=== PATIENT | male | born 2000 | race Caucasian/White ===

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

== ENCOUNTER 2018-06-15 19:38 | Emergency (ER) | payer OTHER ==
[2018-06-15 20:09] VITALS: BP 110/64
--- NOTE | 2018-06-15 20:31 | UC ---
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 UPON STANDING, HE HIT HIS HEAD ON THE TRUNK WHILE AT THE SAME TIME THE QUOTATION CLERK WAS CLOSING THE TRUNK. HE HAD NO LOC, HEADACHE OR COMPLAINTS AT THAT TIME. HE FINISHED HIS SHIFT AT 8:30PM AND WENT HOME FEELING FINE. HE PROCEEDED TO PLAY VIDEO GAMES UNTIL AROUND MIDNIGHT WHEN HE DEVELOPED A THROBBING HEADACHE TO THE TOP OF HIS HEAD. TRIAGE NOTED NAUSEA WHICH HE DENIED TO MYSELF. HE DID HAVE SOME LIGHT SENSITIVITY. HE DENIES FEVER, VOMITING, VISUAL DISTURBANCE. HE DENIES THE HEADACHE BEING ABRUPT OR WORTS EVER. HE HAS TRIED NO SELF TX. HE HAS A SELF DX OF MIGRAINES AND HIS MOTHER AND GRANDMOTHER HAVE MIGRAINES. NO FMH ANEURYSM'S - History Of Current Complaint Chief Complaint: UCHeadInjury Stated Complaint: HEADACHE - HIT HEAD 06/14 NO LOC Time Seen by Provider: 06/15/18 20:23 Hx Obtained From: Patient Pain Intensity: 6 Aggravating Factor(s): Bright Lights Allevating Factor(s): Rest Associated Signs And Symptoms: Negative: Dizziness, Seizure, Vomiting, Fever, Neck Pain, Neck Stiffness, Decreased LOC, Visual Changes - Allergies/Home Medications Allergies/Adverse Reactions: Allergies Allergy/AdvReac Type Severity Reaction Status Date / Time No Known Allergies Allergy Verified 06/15/18 20:09 Home Medications: Home Medications Citalopram TAB* [Celexa TAB*] 20 mg PO BEDTIME 06/15/18 [History Confirmed 06/15] PMH/Surg Hx/FS Hx/Imm Hx Psychological History: Depression - Surgical History Surgical History: None - Family History Known Family History: Positive: Hypertension - Social History Occupation: Employed Full-time Lives: With Family Alcohol Use: None Substance Use Type: None Smoking Status (MU): Never Smoked Tobacco - Immunization History Most Recent Influenza Vaccination: 01/11 Vaccination Up to Date: Yes Review of Systems All Other Systems Reviewed And Are Negative: Yes Eyes: Positive: Photophobia Neurological: Positive: Headache Physical Exam Triage Information Reviewed: Yes Appearance: Well-Appearing Vital Signs: Initial Vital Signs Temp 98 F 06/15/18 20:02 Pulse 65 06/15/18 20:02 Resp 14 06/15/18 20:02 BP 110/64 06/15/18 20:02 Pulse Ox 100 06/15/18 20:02 Vital Signs Reviewed: Yes Eyes: Positive: Other: - perrl, eomi ENT: Positive: Pharynx normal, TMs normal. Negative: Nasal congestion, Nasal drainage Neck: Positive: Supple, Nontender, No Lymphadenopathy, Other: - C-SPINE NON TENDER. Respiratory: Positive: Lungs clear, Normal breath sounds Cardiovascular: Positive: RRR, No Murmur Abdomen Description: Positive: Nontender Bowel Sounds: Positive: Present Musculoskeletal: Positive: Other: - Head: no deformity, swelling or discoloration. Notes tenderness to crown but no step off or instability. Neurological: Positive: Other: - A&O x3. CN 2-12 intact. 5/5 strength, 2+ reflexes and sensation intact x4. steady gait. Negative rhomberg and pronator drift. heal toe walks and rapid alternating moves with ease. Describes hx of injury in detail without difficulty. Psychological: Positive: Normal Response To Family, Age Appropriate Behavior Skin Exam: Normal Headache Course/Dx - Differential Dx/Diagnosis Differential Diagnosis/HQI/PQRI: Other - neuro exam reassuring. not abrupt/ worst AG to suggest bleed. not typical of concussion. exam is c/w with scalp contusion and non specific headache, posssible migraine. Provider Diagnosis: Contusion of scalp, Headache Discharge - Sign-Out/Discharge Documenting (check all that apply): Patient Departure All imaging exams completed and their final reports reviewed: No Studies - Discharge Plan Condition: Stable Disposition: HOME Patient Education Materials: Acute Headache (ED), Scalp Contusion in Adults (ED ) Referrals: Lianne Dillon MD [Primary Care Provider] - 3 Days - Billing Disposition and Condition Condition: STABLE Disposition: Home - Attestation Statements Provider Attestation: I was available for consult. This patient was seen by the [facility]. The patient was not presented to, seen by, or examined by me. -Juan Luis
[2018-06-15] MEDS ORDERED: Acetaminophen TAB* 325 MG PO ONE (20:38)
== END 2018-06-15 20:46 | disposition home or self-care (01) ==
LOC: UCCORT 19:38
DX: S00.03XA Contusion of scalp, initial encounter (principal); R51 Headache; H53.149 Visual discomfort, unspecified; W22.8XXA Striking against or struck by other objects, initial encounter; Y92.810 Car as the place of occurrence of the external cause; Y99.0 Civilian activity done for income or pay; F32.9 Major depressive disorder, single episode, unspecified
CPT/HCPCS: 99212; A9270-GY; G0463